=== PATIENT | female | born 1975 | race Asian ===

== ENCOUNTER 2017-01-09 09:43 | Inpatient (IN) | payer MEDICARE, MEDICAID ==
[~2017-01-09] VITALS: Ht 175.3 cm; Wt 134.9 kg
[~2017-01-09 09:43] MED LIST: CARI350 PO; CHOL4PAC6 PO; FLUO-191 PO; METF500T4 PO; METO25XL PO; QUET300T18 PO; VITAD1000 PO
[2017-01-09] MEDS ORDERED: HYDR-309 PO (10:01)
[2017-01-09] MEDS ORDERED: SITA25 PO (10:01)
[2017-01-09] MEDS ORDERED: LOPERAMIDE HCL 2 MG CAPSULE PO PRN (12:45)
[2017-01-09] MEDS ORDERED: QUEtiapine FUMARATE 100 MG TABLET PO PRN (12:45)
[2017-01-09] MEDS ORDERED: GuaiFENesin/D-METHORPHAN [SUGAR-FREE] 200-20MG/10 ML SYRUP UDCUP PO PRN (12:45)
[2017-01-09] MEDS ORDERED: ZOLPIDEM TARTRATE 10 MG TABLET PO PRN (12:45)
[2017-01-09] MEDS ORDERED: PROMETHAZINE HCL 25 MG TABLET PO PRN (12:45)
[2017-01-09] MEDS ORDERED: MAGNESIUM HYDROXIDE SUSPENSION 30 ML UDCUP PO PRN (12:45)
[2017-01-09] MEDS ORDERED: ACETAMINOPHEN 325 MG TABLET PO PRN (12:45)
[2017-01-09] MEDS ORDERED: LORazepam 2 MG TABLET PO PRN (12:45)
[2017-01-09] MEDS ORDERED: HydrOXYzine PAMOATE 50 MG CAPSULE PO PRN (12:45)
[2017-01-09] MEDS ORDERED: MAG HYDROX/AL HYDROX/SIMETH ES 30 ML SUSPENSION UDCUP PO PRN (12:45)
[2017-01-09 13:08] LABS: BASOPHILS % (AUTO) 0.1 % (0.0-2.0); EOSINOPHILS # (AUTO) 0.14 K/uL (0.00-0.70); EOSINOPHILS % (AUTO) 1.87 % (1.0-6.0); HEMATOCRIT 34.7 % (36-46); HEMOGLOBIN 10.8 g/dL (12.0-16.0); LYMPHOCYTES # (AUTO) 1.6 K/uL (1.0-4.8); MEAN CORPUSCULAR HEMOGLOBIN 22.3 pg (26.0-34.0); MEAN CORPUSCULAR VOLUME 72 fL (80-100); MONOCYTES # (AUTO) 0.3 K/uL (0.1-1.0); MONOCYTES % (AUTO) 3.8 % (2.0-9.0); NEUTROPHILS # (AUTO) 5.3 K/uL (1.8-7.7); NEUTROPHILS % (AUTO) 72.2 % (40.0-70.0); PLATELET COUNT (AUTO) 158 K/uL (150-450); RED BLOOD CELL COUNT(AUTO) 4.82 MIL/uL (4.00-5.20); RED CELL DISTRIBUTION WIDTH 23.5 % (11.5-14.5); WHITE BLOOD COUNT (AUTO) 7.3 K/uL (4.5-11.0)
[2017-01-09 13:39] LABS: RBC MORPHOLOGY COMMENT ABNORMAL RBC MORPH
[2017-01-09 13:45] LABS: ANION GAP 10 mmol/L (8-16); CALCIUM, TOTAL 8.7 mg/dL (8.8-10.5); CARBON DIOXIDE 26 mmol/L (22-29); CHLORIDE 103 mmol/L (98-107); CREATININE 0.97 mg/dL (0.60-1.30); GLOMERULAR FILTR. RATE CALC > 60 mL/min (>60); POTASSIUM 4.2 mmol/L (3.5-5.1); SODIUM SERUM 139 mmol/L (136-145); UREA NITROGEN, BLOOD 10 mg/dL (7-18)
[2017-01-09 13:56] LABS: ALANINE AMINOTRANSFERASE 26 U/L (12-78); ALBUMIN 3.6 g/dL (3.4-5.0); ASPARTATE AMINOTRANSFERASE 24 U/L (15-37); BILIRUBIN,TOTAL 0.3 mg/dL (0.1-1.0); TOTAL PROTEIN, SERUM 8.1 g/dL (6.4-8.2)
[2017-01-09] MEDS ORDERED: DEXTROSE 50%-WATER 25 GM/50 ML SYRINGE IVP PRN (14:30)
[2017-01-09 14:35] VITALS: BP_SYST 127
[2017-01-09] MEDS: THIAMINE HCL 100 MG TABLET PO SCH (16:27)
[2017-01-09] MEDS: CloNIDine HCL 0.1 MG TABLET PO SCH (16:27)
[2017-01-09] MEDS: MetFORMIN HCL 500 MG TABLET PO SCH (16:33)
[2017-01-09] MEDS: CHOLECALCIFEROL (VIT D3) 5,000 UNITS CAPSULE PO SCH (16:33)
[2017-01-09 17:00] VITALS: BP 143/102
[2017-01-09] MEDS: INSULIN ASPART 100 UNITS/ML SQ PRN (17:46)
[2017-01-09 17:49] LABS: GLUCOSE,POINT OF CARE 207 MG/DL (70-110)
[2017-01-09] MEDS: QUEtiapine FUMARATE 300 MG TABLET PO SCH (20:36)
[2017-01-09] MEDS ORDERED: QUEtiapine FUMARATE 200 MG TABLET PO SCH (21:00)
[2017-01-10 05:38] LABS: GLUCOSE COMMENT 1 Received Meds; GLUCOSE,POINT OF CARE 168 MG/DL (70-110)
[2017-01-10 06:33] LABS: BASOPHILS % (AUTO) 0.1 % (0.0-2.0); EOSINOPHILS # (AUTO) 0.13 K/uL (0.00-0.70); EOSINOPHILS % (AUTO) 2.34 % (1.0-6.0); HEMATOCRIT 33.3 % (36-46); HEMOGLOBIN 10.2 g/dL (12.0-16.0); LYMPHOCYTES # (AUTO) 1.6 K/uL (1.0-4.8); LYMPHOCYTES % (AUTO) 28.8 % (22.0-44.0); MEAN CORPUSCULAR HEMOGLOBIN 22.1 pg (26.0-34.0); MEAN CORPUSCULAR HGB CONC 30.5 G/dL (31.0-37.0); MEAN CORPUSCULAR VOLUME 73 fL (80-100); MONOCYTES # (AUTO) 0.6 K/uL (0.1-1.0); MONOCYTES % (AUTO) 9.8 % (2.0-9.0); NEUTROPHILS # (AUTO) 3.3 K/uL (1.8-7.7); PLATELET COUNT (AUTO) 150 K/uL (150-450); RED CELL DISTRIBUTION WIDTH 23.4 % (11.5-14.5); WHITE BLOOD COUNT (AUTO) 5.6 K/uL (4.5-11.0)
[2017-01-10] MEDS: INSULIN ASPART 100 UNITS/ML SQ PRN ×3 (06:58→17:02)
[2017-01-10] MEDS: MetFORMIN HCL 500 MG TABLET PO SCH ×2 (07:00→16:38)
[2017-01-10 07:20] LABS: ALBUMIN 3.4 g/dL (3.4-5.0); BILIRUBIN,TOTAL 0.4 mg/dL (0.1-1.0); CALCIUM, TOTAL 8.5 mg/dL (8.8-10.5); CHOL/HDL RATIO 2.8 (3.9-5.7); CREATININE 1.02 mg/dL (0.60-1.30); MAGNESIUM 1.5 mg/dL (1.80-2.40); POTASSIUM 3.8 mmol/L (3.5-5.1); THYROID STIMULATING HORMONE 0.93 uIU/mL (0.36-3.74); TOTAL PROTEIN, SERUM 7.8 g/dL (6.4-8.2)
[2017-01-10] MEDS: FLUoxetine HCL 20 MG CAPSULE PO SCH (08:17)
[2017-01-10] MEDS: TOPIRAMATE 25 MG TABLET PO SCH (08:17)
[2017-01-10] MEDS: THIAMINE HCL 100 MG TABLET PO SCH ×2 (08:17→16:33)
[2017-01-10] MEDS: CloNIDine HCL 0.1 MG TABLET PO SCH ×2 (08:17→16:33)
[2017-01-10] MEDS: MULTIVITAMINS WITH MINERALS, THERAPEUTIC TABLET PO SCH (08:17)
[2017-01-10 08:18] LABS: HEMOGLOBIN A1C 7.9 % (4.5-6.2)
[2017-01-10] MEDS: CHOLECALCIFEROL (VIT D3) 5,000 UNITS CAPSULE PO SCH (08:18)
[2017-01-10] MEDS: FOLIC ACID 1 MG TABLET PO SCH (08:18)
[2017-01-10 08:30] VITALS: BP 146/100
[2017-01-10 10:22] LABS: RBC MORPHOLOGY COMMENT ABNORMAL RBC MORPH
[2017-01-10 11:07] LABS: GLUCOSE,POINT OF CARE 158 MG/DL (70-110)
[2017-01-10 11:08] VITALS: BP 135/90
[2017-01-10] MEDS: MAGNESIUM OXIDE 400 MG TABLET PO SCH (16:33)
[2017-01-10 16:43] LABS: GLUCOSE COMMENT 1 Received Meds; GLUCOSE,POINT OF CARE 228 MG/DL (70-110)
[2017-01-10] MEDS ORDERED: NALT50TA PO (16:43)
[2017-01-10] MEDS ORDERED: TOPI25 PO (16:43)
[2017-01-10] MEDS ORDERED: FLUO-191 PO (16:43)
[2017-01-10] MEDS ORDERED: QUET300T18 PO (16:43)
[2017-01-10 17:16] VITALS: BP 124/75
[2017-01-10] MEDS: QUEtiapine FUMARATE 300 MG TABLET PO SCH (20:08)
[2017-01-11 06:12] LABS: GLUCOSE COMMENT 1 Received Meds; GLUCOSE,POINT OF CARE 185 MG/DL (70-110)
[2017-01-11] MEDS: MetFORMIN HCL 500 MG TABLET PO SCH (06:53)
[2017-01-11] MEDS: INSULIN ASPART 100 UNITS/ML SQ PRN (06:54)
[2017-01-11 08:17] VITALS: BP 140/91
[2017-01-11] MEDS: FLUoxetine HCL 20 MG CAPSULE PO SCH (08:23)
[2017-01-11] MEDS: THIAMINE HCL 100 MG TABLET PO SCH (08:23)
[2017-01-11] MEDS: MULTIVITAMINS WITH MINERALS, THERAPEUTIC TABLET PO SCH (08:24)
[2017-01-11] MEDS: CloNIDine HCL 0.1 MG TABLET PO SCH (08:24)
[2017-01-11] MEDS: CHOLECALCIFEROL (VIT D3) 5,000 UNITS CAPSULE PO SCH (08:24)
[2017-01-11] MEDS: MAGNESIUM OXIDE 400 MG TABLET PO SCH (08:24)
[2017-01-11] MEDS: FOLIC ACID 1 MG TABLET PO SCH (08:24)
[2017-01-11] MEDS: TOPIRAMATE 25 MG TABLET PO SCH (08:24)
[2017-01-11] MEDS ORDERED: NALTREXONE HCL 50 MG TABLET PO SCH (09:00)
[2017-01-11] MEDS ORDERED: VITAD1000 PO (09:38)
[2017-01-11] MEDS ORDERED: FOLI1 PO (09:39)
[2017-01-11] MEDS ORDERED: CLON-570 PO (09:39)
[2017-01-11] MEDS ORDERED: MAGOX PO (09:40)
[2017-01-11] MEDS ORDERED: NALT50TA6 PO (09:44)
[2017-01-11] MEDS ORDERED: METF500T4 PO (09:44)
[2017-01-11] MEDS ORDERED: MULT-248 PO (09:44)
[2017-01-11] MEDS ORDERED: QUET300T2 PO (09:45)
[2017-01-11] MEDS ORDERED: THIA100 PO (09:45)
[2017-01-11] MEDS ORDERED: TOPI25 PO (09:48)
[2017-02-06] MEDS ORDERED: ARIPiprazole ER SUSPENSION 400 MG PRE-FILLED DUAL CHAMBER SYRINGE IM SCH (09:00)
== END 2017-01-11 14:26 | disposition home or self-care (01) | DRG 885 ==
LOC: EMS 09:47 → UNDOADMIN 12:43 → 3EX 12:43 → AHU 12:43
PROVIDERS: ADMIT Psychiatry & Neurology Psychiatry; ATTEND Psychiatry & Neurology Psychiatry
DX: F25.0 Schizoaffective disorder, bipolar type (principal); R45.851 Suicidal ideations; N19 Unspecified kidney failure; E11.9 Type 2 diabetes mellitus without complications; Z68.41 Body mass index [BMI] 40.0-44.9, adult; I10 Essential (primary) hypertension; E55.9 Vitamin D deficiency, unspecified; D64.9 Anemia, unspecified; E66.01 Morbid (severe) obesity due to excess calories; Z91.19 Patient's noncompliance with other medical treatment and regimen; E78.00 Pure hypercholesterolemia, unspecified; L93.0 Discoid lupus erythematosus; K21.9 Gastro-esophageal reflux disease without esophagitis; M79.7 Fibromyalgia; S40.861A Insect bite (nonvenomous) of right upper arm, initial encounter; W57.XXXA Bitten or stung by nonvenomous insect and other nonvenomous arthropods, initial encounter; G89.29 Other chronic pain; M54.30 Sciatica, unspecified side; M54.5 Low back pain; R63.4 Abnormal weight loss; Z87.440 Personal history of urinary (tract) infections; F17.210 Nicotine dependence, cigarettes, uncomplicated; Z71.6 Tobacco abuse counseling; Z65.3 Problems related to other legal circumstances; Z59.9 Problem related to housing and economic circumstances, unspecified; Z63.9 Problem related to primary support group, unspecified; Z87.898 Personal history of other specified conditions
CPT/HCPCS: 82962; 83036; 83735; 84439; 84443; 86592; 93005; 99285; 99406; G0480

== ENCOUNTER 2017-01-16 19:16 | Inpatient (IN) | payer MEDICARE, MEDICAID ==
[~2017-01-16] VITALS: Ht 175.3 cm; Wt 136.2 kg
[~2017-01-16 19:16] MED LIST changes: -CARI350 PO; -CHOL4PAC6 PO; +CLON-570 PO; +MAGOX PO; -METO25XL PO; +NALT50TA PO; +NALT50TA6 PO; +TOPI25 PO
[2017-01-16] MEDS ORDERED: METO25XL PO (19:39)
[2017-01-16] MEDS ORDERED: SITA50 PO (19:39)
[2017-01-16 19:57] LABS: BASOPHILS % (AUTO) 0.2 % (0.0-2.0); EOSINOPHILS % (AUTO) 2.7 % (1.0-6.0); HEMATOCRIT 36.9 % (36-46); HEMOGLOBIN 11.5 g/dL (12.0-16.0); LYMPHOCYTES # (AUTO) 1.9 K/uL (1.0-4.8); LYMPHOCYTES % (AUTO) 21.9 % (22.0-44.0); MEAN CORPUSCULAR HEMOGLOBIN 22.6 pg (26.0-34.0); MEAN CORPUSCULAR HGB CONC 31.1 G/dL (31.0-37.0); MEAN CORPUSCULAR VOLUME 73 fL (80-100); MONOCYTES # (AUTO) 0.7 K/uL (0.1-1.0); MONOCYTES % (AUTO) 7.7 % (2.0-9.0); NEUTROPHILS # (AUTO) 5.9 K/uL (1.8-7.7); NEUTROPHILS % (AUTO) 67.5 % (40.0-70.0); PLATELET COUNT (AUTO) 214 K/uL (150-450); RED BLOOD CELL COUNT(AUTO) 5.07 MIL/uL (4.00-5.20); RED CELL DISTRIBUTION WIDTH 22.9 % (11.5-14.5); WHITE BLOOD COUNT (AUTO) 8.7 K/uL (4.5-11.0)
[2017-01-16 20:18] LABS: ANION GAP 9 mmol/L (8-16); CALCIUM, TOTAL 8.9 mg/dL (8.8-10.5); CARBON DIOXIDE 25 mmol/L (22-29); CHLORIDE 105 mmol/L (98-107); CREATININE 0.95 mg/dL (0.60-1.30); GLOMERULAR FILTR. RATE CALC > 60 mL/min (>60); POTASSIUM 4.1 mmol/L (3.5-5.1); SODIUM SERUM 139 mmol/L (136-145); UREA NITROGEN, BLOOD 16 mg/dL (7-18)
[2017-01-16 20:22] LABS: ALANINE AMINOTRANSFERASE 42 U/L (12-78); ALBUMIN 3.9 g/dL (3.4-5.0); ASPARTATE AMINOTRANSFERASE 37 U/L (15-37); BILIRUBIN,TOTAL 0.3 mg/dL (0.1-1.0)
[2017-01-16 20:23] LABS: GLUCOSE,POINT OF CARE 170 MG/DL (70-110)
[2017-01-16] MEDS ORDERED: OLANZapine 5 MG RAPDIS TABLET PO PRN (21:30)
[2017-01-16] MEDS ORDERED: ZOLPIDEM TARTRATE 10 MG TABLET PO PRN (21:30)
[2017-01-16 21:42] LABS: APPEARANCE,URINE CLEAR (CLEAR); GLUCOSE, URINE (UA) NEGATIVE (NEGATIVE); KETONES,URINE NEGATIVE (NEGATIVE); LEUKOCYTE ESTERASE ,URINE NEGATIVE (NEGATIVE); OCCULT BLOOD,URINE NEGATIVE (NEGATIVE); PH,URINE 6.5 (5.0-8.0); PROTEIN,URINE SEE CONFIRM (NEGATIVE)
[2017-01-16 21:43] LABS: ADD UA MICROSCOPIC YES
[2017-01-16 21:51] LABS: SULFOSALICYLIC ACID,URINE 2+ (Negative)
[2017-01-16 21:52] LABS: RBC,URINE None Seen /HPF (0-2); WBC,URINE 0-2 /HPF (0-5)
[2017-01-16] MEDS ORDERED: NICOTINE 21 MG/24 HOUR PATCH TD ONE (22:00)
[2017-01-16 22:06] LABS: CHOL/HDL RATIO 2.8 (3.9-5.7); THYROID STIMULATING HORMONE 2.71 uIU/mL (0.36-3.74)
[2017-01-16 22:42] LABS: RBC MORPHOLOGY COMMENT ABNORMAL RBC MORPH
[2017-01-16] MEDS ORDERED: ACETAMINOPHEN 500 MG TABLET PO ONE (23:30)
[2017-01-17 00:05] VITALS: BP 166/118
[2017-01-17] MEDS: LORazepam 2 MG TABLET PO PRN (00:23)
[2017-01-17 08:27] VITALS: BP 122/66
[2017-01-17] MEDS ORDERED: GuaiFENesin/D-METHORPHAN [SUGAR-FREE] 200-20MG/10 ML SYRUP UDCUP PO PRN (10:00)
[2017-01-17] MEDS ORDERED: ACETAMINOPHEN 325 MG TABLET PO PRN (10:00)
[2017-01-17] MEDS ORDERED: MAG HYDROX/AL HYDROX/SIMETH ES 30 ML SUSPENSION UDCUP PO PRN (10:00)
[2017-01-17] MEDS ORDERED: MAGNESIUM HYDROXIDE SUSPENSION 30 ML UDCUP PO PRN (10:00)
[2017-01-17] MEDS ORDERED: QUEtiapine FUMARATE 100 MG TABLET PO PRN (10:00)
[2017-01-17] MEDS ORDERED: HydrOXYzine PAMOATE 50 MG CAPSULE PO PRN (10:00)
[2017-01-17] MEDS ORDERED: PROMETHAZINE HCL 25 MG TABLET PO PRN (10:00)
[2017-01-17] MEDS ORDERED: LOPERAMIDE HCL 2 MG CAPSULE PO PRN (10:00)
[2017-01-17] MEDS ORDERED: CHOL50004 PO (12:23)
[2017-01-17 16:40] VITALS: BP 144/87
[2017-01-17] MEDS: THIAMINE HCL 100 MG TABLET PO SCH (16:42)
[2017-01-17] MEDS: MetFORMIN HCL 500 MG TABLET PO SCH (16:42)
[2017-01-17] MEDS: QUEtiapine FUMARATE 300 MG TABLET PO SCH (20:30)
[2017-01-18] MEDS: MetFORMIN HCL 500 MG TABLET PO SCH ×2 (06:57→17:28)
[2017-01-18 08:30] VITALS: BP 108/68
[2017-01-18] MEDS: CHOLECALCIFEROL (VIT D3) 5,000 UNITS CAPSULE PO SCH (10:11)
[2017-01-18] MEDS: FOLIC ACID 1 MG TABLET PO SCH (10:11)
[2017-01-18] MEDS: MULTIVITAMINS WITH MINERALS, THERAPEUTIC TABLET PO SCH (10:11)
[2017-01-18] MEDS: NALTREXONE HCL 50 MG TABLET PO SCH (10:11)
[2017-01-18] MEDS: FLUoxetine HCL 20 MG CAPSULE PO SCH (10:11)
[2017-01-18] MEDS: SitaGLIPtin PHOSPHATE 50 MG TABLET PO SCH (10:11)
[2017-01-18] MEDS: METOPROLOL SUCCINATE 25 MG ER TABLET PO SCH (10:11)
[2017-01-18] MEDS: THIAMINE HCL 100 MG TABLET PO SCH ×2 (10:11→17:29)
[2017-01-18] MEDS: TOPIRAMATE 25 MG TABLET PO SCH (10:11)
[2017-01-18 18:14] VITALS: BP 111/70
[2017-01-18] MEDS: QUEtiapine FUMARATE 300 MG TABLET PO SCH (20:33)
[2017-01-18] MEDS: LORazepam 2 MG TABLET PO PRN (23:06)
[2017-01-19] MEDS: MetFORMIN HCL 500 MG TABLET PO SCH ×2 (06:34→16:43)
[2017-01-19] MEDS: NALTREXONE HCL 50 MG TABLET PO SCH (09:13)
[2017-01-19] MEDS: FLUoxetine HCL 20 MG CAPSULE PO SCH (09:13)
[2017-01-19] MEDS: CHOLECALCIFEROL (VIT D3) 5,000 UNITS CAPSULE PO SCH (09:13)
[2017-01-19] MEDS: FOLIC ACID 1 MG TABLET PO SCH (09:13)
[2017-01-19] MEDS: MULTIVITAMINS WITH MINERALS, THERAPEUTIC TABLET PO SCH (09:13)
[2017-01-19] MEDS: TOPIRAMATE 25 MG TABLET PO SCH (09:13)
[2017-01-19] MEDS: METOPROLOL SUCCINATE 25 MG ER TABLET PO SCH (09:13)
[2017-01-19] MEDS: THIAMINE HCL 100 MG TABLET PO SCH ×2 (09:13→16:43)
[2017-01-19] MEDS: SitaGLIPtin PHOSPHATE 50 MG TABLET PO SCH (09:13)
[2017-01-19 09:43] VITALS: BP 123/87
[2017-01-19 16:15] VITALS: BP 136/87
[2017-01-19 17:07] LABS: GLUCOSE,POINT OF CARE 201 MG/DL (70-110)
[2017-01-19] MEDS ORDERED: DEXTROSE 50%-WATER 25 GM/50 ML SYRINGE IVP PRN (17:15)
[2017-01-19] MEDS: INSULIN ASPART 100 UNITS/ML SQ PRN (17:27)
[2017-01-19] MEDS: QUEtiapine FUMARATE 300 MG TABLET PO SCH (20:42)
[2017-01-20 05:38] LABS: GLUCOSE COMMENT 1 Received Meds; GLUCOSE,POINT OF CARE 159 MG/DL (70-110)
[2017-01-20] MEDS: MetFORMIN HCL 500 MG TABLET PO SCH (06:52)
[2017-01-20] MEDS: INSULIN ASPART 100 UNITS/ML SQ PRN (06:58)
[2017-01-20 08:29] VITALS: BP 126/98
[2017-01-20] MEDS: MULTIVITAMINS WITH MINERALS, THERAPEUTIC TABLET PO SCH (10:39)
[2017-01-20] MEDS: CHOLECALCIFEROL (VIT D3) 5,000 UNITS CAPSULE PO SCH (10:39)
[2017-01-20] MEDS: NALTREXONE HCL 50 MG TABLET PO SCH (10:39)
[2017-01-20] MEDS: SitaGLIPtin PHOSPHATE 50 MG TABLET PO SCH (10:39)
[2017-01-20] MEDS: FOLIC ACID 1 MG TABLET PO SCH (10:39)
[2017-01-20] MEDS: METOPROLOL SUCCINATE 25 MG ER TABLET PO SCH (10:39)
[2017-01-20] MEDS: THIAMINE HCL 100 MG TABLET PO SCH (10:39)
[2017-01-20] MEDS: FLUoxetine HCL 20 MG CAPSULE PO SCH (10:39)
[2017-01-20] MEDS: TOPIRAMATE 25 MG TABLET PO SCH (10:39)
== END 2017-01-20 09:30 | disposition home or self-care (01) | DRG 885 ==
LOC: EMS 19:19 → B3A 22:25 → 3EI 22:25
PROVIDERS: ADMIT Psychiatry & Neurology Psychiatry; ATTEND Psychiatry & Neurology Psychiatry
DX: F25.0 Schizoaffective disorder, bipolar type (principal); E11.22 Type 2 diabetes mellitus with diabetic chronic kidney disease; R45.851 Suicidal ideations; E66.01 Morbid (severe) obesity due to excess calories; Z59.0 Homelessness; F11.20 Opioid dependence, uncomplicated; Z68.41 Body mass index [BMI] 40.0-44.9, adult; D64.9 Anemia, unspecified; L93.0 Discoid lupus erythematosus; M79.7 Fibromyalgia; M54.30 Sciatica, unspecified side; F17.210 Nicotine dependence, cigarettes, uncomplicated; I12.9 Hypertensive chronic kidney disease with stage 1 through stage 4 chronic kidney disease, or unspecified chronic kidney disease; N18.9 Chronic kidney disease, unspecified; M54.5 Low back pain; E55.9 Vitamin D deficiency, unspecified; G89.29 Other chronic pain; E78.5 Hyperlipidemia, unspecified; J44.9 Chronic obstructive pulmonary disease, unspecified; F19.10 Other psychoactive substance abuse, uncomplicated; Z81.8 Family history of other mental and behavioral disorders; Z90.49 Acquired absence of other specified parts of digestive tract; Z91.14 Patient's other noncompliance with medication regimen; Z87.440 Personal history of urinary (tract) infections; Z79.84 Long term (current) use of oral hypoglycemic drugs; Z79.899 Other long term (current) drug therapy; Z83.3 Family history of diabetes mellitus; Z82.49 Family history of ischemic heart disease and other diseases of the circulatory system
CPT/HCPCS: 82962; 83036; 84443; 87081; 99285; G0480

== ENCOUNTER → 2017-02-09 | Outpatient (CLI) | payer MEDICARE, OTHER ==
[~2017-02-09] MED LIST changes: +CHOL50004 PO; -CLON-570 PO; -MAGOX PO; +METO25XL PO; -NALT50TA PO; +SITA50 PO; -VITAD1000 PO
== END | disposition home or self-care (01) ==
LOC: RADPV 15:45
PROVIDERS: ATTEND Internal Medicine Geriatric Medicine
DX: M25.511 Pain in right shoulder (principal); M25.521 Pain in right elbow; M79.631 Pain in right forearm